=== PATIENT | female | born 1980 | race Caucasian/White ===

== ENCOUNTER 2023-02-24 11:00 | Outpatient (RCR) | payer BC, SELFPAY ==
--- NOTE | 2022-12-30 16:18 | PTOPEVAL1 ---
Assessment and note entered by Mian Green, PT Evaluation Information Assessment Status Evaluation Diagnosis low back pain with left sided sciatica Onset 6 months ago. Subjective Information Patient reports 6 months ago she started having low back pain with sciatica on the L side progressively going down further until now it is all the way to the toes. She had X-rays showing DDD. Pain is increased with working out and sleeping or being in prolonged position. She recently started tramadol and that helps with the pain. Clinical summary Ashanti is a 42 year old female coming into the clinic with a diagnosis of low back pain with radiating symptoms down the LLE. Patient has tightness in her piriformis, IT band, quads, and calfs along with weakness in her core. In addition patient showing leg length discrepancy of the LLE being longer while may or may not be secondary to SI joint dysfunction. Patient should benefit from skilled physical therapy to work on core strengthening along with stretching of her lower extremities to put her in better alignment. Modalities and manual therapy for pain control. These treatments will address the objective and functional deficits as defined above. The patient will be advanced safely and appropriately in order for the patient to progress towards his/her prior level of function. Additional exercises will be introduced and as well as a comprehensive home exercise program upon discharge, if needed, ?to ensure carryover of functional gains achieved in the clinic. This treatment plan has been reviewed and agreement upon by the patient.
--- NOTE | 2023-01-06 14:46 | PCPTNOTE ---
Patient called & cancelled scheduled appointment this date did not leave a reason.
--- NOTE | 2023-01-14 10:09 | PCPTNOTE ---
Pt cancelled her appt today stating she got back into town late last night and is too tired to attend today.
--- NOTE | 2023-01-18 10:03 | PCPTNOTE ---
Pt no showed todays visit, pt was called and WELDER/FITTER left message of her next appt. and to please call to cancel visits so we can get other people scheduled for that time.
--- NOTE | 2023-01-27 13:30 | PTOPREEVAL ---
Assessment and note entered by Mian Green, PT Evaluation Information Assessment Status Re-evaluation Diagnosis low back pain with left sided sciatica Onset 6 months ago. Subjective Information Patient reports feeling she is getting better and some days will have no pain at all. 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 She has also been trying to get back into the gym to see her personal consultant. Reported Pain Level Pain Score 3: Self Report Assessment PT Clinical Summary Ashanti is a 42 year old female coming into the clinic with a diagnosis of back pain with left side sciatica. She has attended 4 sessions having to cancel for 2 weeks while her family was getting over strep and a stomach flu. The patient has made progress with hip extension strength and reports no more radiating pain down the R LE with decrease felt on the L side also. 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 Piriformis muscle is not longer tight. I would like to continue to be working with the patient while she works on being more active to make sure we do not have any backsliding. If possible would also recommend an MRI so we could better focus or plan of care. Plan of Care Interventions Electrical Stimulation,Gait Training,Hot Pack/Cold Pack,Manual Therapy,Mechanical Traction,Neuro Re- education,Patient/Caregiver Education,Therapeutic Activities,Therapeutic Exercise,Ultrasound Other Interventions taping PT Services Indicated Yes Treatment Frequency and 1x/wk for 4 weeks Duration These treatments will address the objective and functional deficits as defined above. The patient will be advanced safely and appropriately in order for the patient to progress towards his/her prior level of function. Additional exercises will be introduced and as well as a comprehensive home exercise program upon discharge, if needed, ?to ensure carryover of functional gains achieved in the clinic. This treatment plan has been reviewed and agreement upon by the patient.
== END 2023-02-24 13:46 | disposition home or self-care (01) ==
LOC: ANHPT 11:00
DX: M54.42 Lumbago with sciatica, left side (principal)
CPT/HCPCS: 97110; 97140; 97161; 97530; 99199

== ENCOUNTER → 2023-07-07 10:18 | Outpatient (CLI) | payer BC, SELFPAY ==
--- NOTE | ~2023-07-07 | MR_ITS ---
EXAMINATION: MR thoracic spine wo con DATE: 07/07/2023 13:36 INDICATION: Low back pain. Left-sided sciatica. TECHNIQUE: Magnetic resonance imaging (MRI) of the thoracic spine was performed without intravenous c ontrast. COMPARISON: None FINDINGS: There is 7 degrees dextrocurvature of thoracic spine. There is mild chronic anterior wedgin g of T5, T7, T8, T9, T10, T11, and T12 vertebral bodies. There are Schmorl's nodes at many levels. Th ere is mildly decreased disc height from T3-T4 through T11-T12. At T5-T6, the disc is bulging with mi ld central canal stenosis. At T7-T8, there is a left central extrusion with mild central canal stenos is. At T11-T12, the disc is bulging with mild central canal stenosis. There is multilevel facet joint osteoarthritis, severe at many levels. There is multilevel mild neural foraminal stenosis bilaterall y. On the left, there is moderate neural foraminal stenosis at T7-T8 and T8-T9. There is syringohydro myelia from T4 to T9 with maximum diameter of 1 mm. IMPRESSION: 1. Mild thoracic spondylosis. 2. 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 Reviewed, dictated and finalized at location A.
--- NOTE | ~2023-07-07 | MR_ITS ---
EXAMINATION: MR lumbar spine wo con DATE: 07/07/2023 13:36 INDICATION: Low back pain. Left-sided sciatica. TECHNIQUE: Magnetic resonance imaging (MRI) of the lumbar spine was performed without intravenous con trast. Sequences included sagittal T2-weighted FSE, sagittal T2-weighted FS FSE, sagittal T1-weighted FSE, and axial T2-weighted FSE. COMPARISON: None FINDINGS: There is 8 degrees levocurvature of lumbar spine. S1 is a transitional segment. There are S chmorl's nodes at multiple levels. There is severely decreased disc height at L4-L5 and L5-S1 with en dplate remodeling. The distal spinal cord signal intensity is normal. The conus medullaris is at T12- L1. The following disc levels are specifically discussed: L1-L2: The disc does not extend beyond the endplate margin. There is no facet joint osteoarthritis. T here is no neural foraminal stenosis. There is no central canal stenosis. L2-L3: The disc is bulging. There is moderate bilateral facet joint osteoarthritis. There is mild tim ateral neural foraminal stenosis. There is no central canal stenosis. L3-L4: The disc is bulging. There is moderate bilateral facet joint osteoarthritis. There is mild tim ateral neural foraminal stenosis. There is no central canal stenosis. L4-L5: The disc is bulging. There is mild right facet joint osteoarthritis. There is moderate right a nd mild left neural foraminal stenosis. There is mild central canal stenosis. L5-S1: The disc is bulging with superimposed left central extrusion. There is mild right and severe l eft facet joint osteoarthritis. There is mild bilateral neural foraminal stenosis. There is mild cent ral canal stenosis. IMPRESSION: 1. Severe lower lumbar spondylosis. Reviewed, dictated and finalized at location A.
== END ==
PROVIDERS: PCP Physician Assistant
DX: M54.42 Lumbago with sciatica, left side (principal); M47.814 Spondylosis without myelopathy or radiculopathy, thoracic region; G95.0 Syringomyelia and syringobulbia; M47.816 Spondylosis without myelopathy or radiculopathy, lumbar region
CPT/HCPCS: 72146; 72148

== ENCOUNTER 2024-11-16 10:10 | Outpatient (CLI) | payer BC, SELFPAY ==
--- NOTE | ~2024-11-16 | XR_ITS ---
XR chest 2V Ordering provider: Ailyn Yeboah, [place] History: 44 years Female with . COUGH, UNSPECIFIED . Comparison: January 27, 2010 FINDINGS: MEDIASTINUM: The cardiac silhouette is not enlarged. LUNGS: No infiltrates, effusions or pneumothorax. OTHER: No free air under the diaphragm. IMPRESSION: No acute cardiopulmonary pathology. Reviewed, dictated and finalized at location A. TECHNICIAN
== END 2024-11-16 10:11 | disposition home or self-care (01) ==
LOC: GOSHIMG 10:10
PROVIDERS: PCP Physician Assistant; Visit Provider Physician Assistant
DX: R05.9 Cough, unspecified (principal)
CPT/HCPCS: 71046

== ENCOUNTER 2025-06-06 09:20 | Outpatient (CLI) | payer BC, SELFPAY ==
--- NOTE | ~2025-06-06 | XR_ITS ---
EXAM/PROCEDURE: XR abdomen/kub 1V - 06/06/2025 9:55 CDT HISTORY: 44 years old Female with right flank pain x 2 wks COMPARISON: None available. TECHNIQUE: AP view(s) of the abdomen. FINDINGS: The bowel gas pattern is normal. There is no evidence for obstruction. No free intraperitoneal air is identified on this supine radiograph. The visualized soft tissue shadows are unremarkable. No gross bony abnormalities are seen. Visualized portions of lung bases are clear. Cholecystectomy clips are seen. A battery and insulin pu mp is noted. No large radiopaque calculus seen. IMPRESSION: No acute process. Reviewed, dictated and finalized at location A. IMPRESSION: No acute process.
== END 2025-06-06 09:21 | disposition home or self-care (01) ==
PROVIDERS: PCP Physician Assistant; Visit Provider Physician Assistant
DX: R10.9 Unspecified abdominal pain (principal)
CPT/HCPCS: 74018

== ENCOUNTER 2025-06-11 13:52 | Outpatient (CLI) | payer BC, SELFPAY ==
--- NOTE | ~2025-06-11 | XR_ITS ---
Right Shoulder Technique: AP and scapular Y views were obtained. Clinical History: Pain Findings: No fracture or dislocation is seen. Osseous alignment is anatomic. The glenohumeral and acr omioclavicular joint spaces are preserved. Soft tissues are unremarkable. Impression: Unremarkable right shoulder radiographs. Reviewed, dictated and finalized at [facility]. Impression: Unremarkable right shoulder radiographs.
== END 2025-06-11 13:53 | disposition home or self-care (01) ==
PROVIDERS: PCP Physician Assistant; Visit Provider Physician Assistant
DX: M25.511 Pain in right shoulder (principal)
CPT/HCPCS: 73030

== ENCOUNTER 2025-07-29 01:15 | Day surgery (SDC) | payer BC, SELFPAY ==
--- OUTSIDE RECORDS SUMMARY | 2010-06-05 07:45 | XMS_ITS | Continuity of Care Document ---
Author Organization [facility] Address [address] [place] [address] Phone Care Team Providers Care Trimmer Helper Name Role Phone Barber OD, Zane Unavailable [...] Diagnoses Date Provider Providers Copied on Encounter [facility], [address] [place] [address] [address], [place], [place], [address], [place] tel:[phone] [facility] No Information 3-201 0 Barber OD Zane. [address] , [address], [place], [address], [place]. tel:[phone] Referring Provider: Brent Salazar, [address] [facility] [address], [place], [address]. tel:[phone] [facility], [address], [place], [place], [address], tel:[phone] [facility] No Information 7-200 9 Barber OD Zane. [address] , [address], [place], [address], [place]. tel:[phone] Referring Provider: Bernabe Green, [address] [facility] [address], [place], [address]. tel:[phone] [facility], [address], [place], [place], [address], tel:[phone] [facility] No Information Mar-2 0-200 8 Barber OD Zane. [address], [place], [address], [place]. tel:[phone] [facility], [address], [place], [place], [address], [place] tel:[phone] [facility] No Information Mar-0 6-200 8 Barber OD Zane. [address], [place], [place], [facility], [place]. tel:[phone] Referring Provider: Bernabe Green, [address] [facility] [address], [place], [address]. tel:[phone] [facility], [address] [facility] [address], [place], [place], [address], [place] tel:[phone] [facility] No Information Feb-2 7-200 7 Barber OD Zane. [address], [place], [address], [place]. tel:[phone] Referring Provider: Brent Salazar, [address] [facility] [address], [place], [address]. tel:[phone] Family History Family Member Type Diagnosis Age At Onset No Information Payers Payer name Insurance type Covered constitution party ID Authorarelya yolis(s) [facility] CI [id number] Social History Type Description Quantity Date Captured [...]
[2025-07-23 09:44] VITALS: BMI 36.6
--- NOTE | 2025-07-23 09:53 | PC.NURSE ---
Report to the Outpatient Waiting Room, entrance under the green pavilion located off [facility], at time _0600_ on date _[id number]_. Planned Procedure Time: _0730_.? Time changes happen often and if your time is changed the preop area will call you the afternoon before. - You and your visitor will be asked to self-screen and do not enter if you have any COVID symptoms. Please call surgeon if you need to reschedule. - A mask is optional within the hospital at this time. Patients may have clear liquids (water, carbonated beverages, clear teas, apple juice) until 3 hours prior to surgery with a maximum of 20 ounces. - No food from midnight until time of surgery and no smoking, or chewing tobacco (or any form of nicotine). No chewing gum, candy or mints. Take only the following medications with a SIP of water on the morning of surgery: __None___Continue insulin pump. DO NOT STOP ANY OF YOUR OTHER PRESCRIPTION MEDICATIONS PRIOR TO SURGERY EXCEPT THE FOLLOWING Hold all vitamins and supplements for 3 days per anesthesiologist. Medications to discontinue per physician Date to take last dose Please no make-up, nail arabic, hairspray, perfume, deodorant, or body powder the day of surgery.? No jewelry (including any body piercings) or valuables the day of surgery, leave them at home.? Please take a shower or bath the night before, or the morning of, surgery with an antibacterial soap.? Wear comfortable, loose fitting clothing.? - Jewelry must be removed prior to entering the operating room.? Rings and piercings that are not removed may be cut off. - The hospital will not accept responsibility for valuables.? - Please leave all valuables, including medications, at home the day of surgery. If you are going home after surgery, a licensed cement truck driver must drive you home.? - NO public transportation without another adult if you receive anesthesia. - We recommend that an adult stay with you for 24 hours following discharge. - We also recommend that you do not drive, make important decision, drink alcoholic beverages, or take any drugs that were not prescribed by your health care provider for at least 24 hours after your discharge time. Follow any additional instructions given to you from your surgeon. Telephone instructions given to __Ashanti___and asked if any additional questions and then verbalized understanding. Patient advised to call surgeon office or pre surgery nurse liaison [phone] if any additional questions.
--- NOTE | 2025-07-28 12:34 | P.HP_ITS ---
H&P: HPI History of Present Illness Date/Time: 07/28/25 12:34 Chief Complaint: AUB Narrative: Ashanti is a 44yo P1102, LMP 06/05/25 who presents as a [employer] ENG[employer] for [employer] in May; normal pap 05/2025. 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 She had been on OCPs (tried 3 diff kinds) and had severe migraines to help w/ ovulation pain and AUB. She has been having irregular periods for some time though; sometimes 35 to 18 days. She has not have endometrial sampling or a DIRECTOR OF SPA AND GUEST EXPERIENCE US. She does feel like the testosterone injections 0.5mg weekly has helped her libido, but has made the bleeding iridic. She is taking progesterone 100mg qhs. She denies any pelvic pain, but has a h/o x2. She denies any vaginal issues. She denies any breast issues, goes to [facility]. She is sexually active w/o issue, has vasectomy. She reports a h/o normal pap smears. She has DM and is on insulin and mounjaro, A1c 5.7. See's Ailyn and endo; had normal blood work recently. She also had normal hormone testing 03/13/25 before starting hormones (no PCOS, just DM). She was having hot flashes, night sweats prior to the hormones as well. DIRECTOR OF SPA AND GUEST EXPERIENCE US showed an irregular uterine texture (likely adenomyosis). Review of Systems Constitutional: Constitutional: Denies chills, Denies fever(s) and Denies headache(s) Eyes: Eyes: Denies change in vision ENT: Denies dizziness and Denies headache(s) Cardiovascular: Cardiovascular: Denies chest pain and Denies dyspnea Respiratory: Respiratory: Denies cough and Denies dyspnea Gastrointestinal: Gastrointestinal: Denies abdominal pain and Denies change in stool character Genitourinary: Genitourinary: Reports abnormal menses, Reports abnormal vaginal bleeding, Reports menorrhagia, Denies pelvic pain, Denies vaginal di scharge, Denies vaginal odor and Denies vaginal pruritus Neurologic: Denies dizziness and Denies headache(s) Psychiatric: Psychiatric: Denies anxiety and Denies depression [facility] Past Medical History Medical History (Updated 06/11/25 @ 11:47 by Swathi Hernández MD) GERD (gastroesophageal reflux disease) Gallbladder disorder Diabetes Allergies Surgical History Surgical History (Updated 06/11/25 @ 09:57 by Renan Batista MA) H/O wisdom tooth extraction History of cholecystectomy History of carpal tunnel surgery Delivery by section Family History Family History (Updated 06/11/25 @ 09:57 by Renan Batista MA) Grandparent Family history of lung cancer Family history of malignant neoplasm of breast Family history of heart disease in male family member before age 55 Father Brain tumor Other Family history of cardiovascular disease Social History Social History (Updated 06/11/25 @ 09:57 by Renan Batista MA) Smoking status: Never smoker Second hand tobacco smoke exposure: No Alcohol intake: current Drinks per week: 4 Substance use: never Substance use type: does not use Do You Feel Safe in your Home?: Yes Lack of Transportation: No Lack of Food: Never True Current Housing: I Have Housing Concerned About Future Housing: No Difficulty Paying Gas/Electric Bills: No Difficulty Paying for Meds: No Currently Unemployed: No Education: Bachelor's Degree Difficulty w/ Childcare or Family Care: No Living arrangements: with family Occupation/Education: other Spiritual care concerns: No Meds Home Medications and Allergies Home Medications ?Medication ?Instructions ?Recorded ?Confirmed ?Type insulin aspart U-100 100 unit/mL 1.25 unit subcut Q1H 06/11/25 07/23/25 History subcutaneous solution (Novolog U-100 Insulin aspart) insulin pump cart,auto,BT,G6/7 #5 ea 06/11/25 07/23/25 History (Omnipod 5 G6-G7 Pods (Gen 5) subcutaneous cartridge) progesterone micronized 100 mg 200 mg (2 x 100 mg) PO QHS 60 days 06/11/25 07/23/25 Rx capsule #120 caps spironolactone 50 mg tablet 50 mg PO DAILY 06/11/25 History tirzepatide 15 mg/0.5 mL 15 mg subcut WEEKLY 06/11/25 07/23/25 History subcutaneous pen injector (Mounjaro) Allergies Allergy/AdvReac Type Severity Reaction Status Date / Time codeine Allergy Intermediate Nausea and Verified 07/23/25 09:40 Vomiting Exam Const: General: cooperative, comfortable, no acute distress and obese Orientation/consciousness: patient oriented x3 Resp: Effort & Inspection: normal respiratory effort Cardio: Rate: regular rate GI: Inspection: normal to inspection GI Palp: No abdominal tenderness and Yes Soft to palpation : Other: deferred to OR Skin: General skin exam: normal color Neuro: General: patient oriented x3 Extrem: General: normal to inspection Psych: Appearance: grossly normal Affect: normal affect Attitude: cooperative Assessment and Plan Assessment and plan (1) Abnormal uterine bleeding (AUB): Code(s): N93.9 - Abnormal uterine and vaginal bleeding, unspecified Status: Acute (2) Hormone replacement therapy: Code(s): Z79.890 - Hormone replacement therapy Status: Acute Plan - micronized progesterone increased to 200mg qhs - would avoid estrogen as it has caused migraines in the past - recommend stopping testosterone IM until AUB w/u and sampling has been completed. - Proceed with Hysteroscopy/D&C for endometrial sampling (discussed risk/b enefits of EMB vs D&C in detail)
--- OUTSIDE RECORDS SUMMARY | 2025-07-29 01:18 | XMS_ITS | Encounter Summary ---
Author Organization [facility] Address [address] [place] [address] Care Team Providers Care Reference Assistant Name Role Phone Unavailable Primary Care Provider Unavailabl e Encounter Details Date Type Department Care Team (Late st Contact Info) Description 09/06/2024 Lab Requisition [facility] - DermPath Lab [address] [place] [address] Nichole Li MD [address] [facility] [address] [place] [address] Social History Tobacco Use Types Packs/Day Years Used Date Smoking Tobacco: Never Assessed Comments Unknown Sex and Gender Information Value Date Recorded Sex Assigned at Not on file 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 Gender Identity Not on file Sexual Orientation Not on file documented as of this encounter Plan of Treatment Not on file documented as of this encounter Procedures Procedure Name Priority Date/Time Associated Diagnosis Comments DERMATOPATHOLOGY Routine 09/06/2024 1:46 PM CDT documented in this encounter Results * DERMATOPATHOLOGY (09/06/2024 1:46 PM CDT) Case Report Dermatopathology Report Case: [id number] Authorizing Provider: Nichole Li MD Collected: 09/06/2024 01:46 PM Ordering Location: [facility] - Received: 09/07/2024 02:17 PM DermPath Lab Pathologist: Ana Davidson MD Specimen: Skin, right abdomen 4:05 PM CDT DERMATOPATHOLOGY LABORATORY Final Diagnosis Specimen A. 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 4:05 PM CDT DERMATOPATHOLOGY LABORATORY Gross Description Specimen A: Received is one formalin filled container labeled with the patient's name and designated right abdomen. The specimen consists of a punch biopsy measuring 4x4x6 mm. Jar 0. 4:05 PM CDT DERMATOPATHOLOGY LABORATORY Microscopic Description Specimen A. SKIN, right abdomen: The epidermis shows focal parakeratosis and spongiosis. There is a superficial and deep perivascular and interstitial infiltrate of lymphocytes with eosinophils. Vasculitis is not seen. Neutrophils are not appreciated. Grocott's methenamine silver (GMS) stain fails to highlight fungal elements in the available sections. COMMENT: The histologic differential diagnosis includes an arthropod bite reaction, and a hypersensitivity reaction, such as to drug or contact. 4:05 PM CDT DERMATOPATHOLOGY LABORATORY Disclaimer An external and internal positive and negative controls are appropriate for the histochemical, immunohistochemical and immunofluorescence stain(s) in this case (if any), except where stated explicitly. The performance characteristics of the stain(s) cited in this report were developed and its performance characteristic determined by the Dermatopathology Laboratory at [facility], directed by Dr. Cain Prieto. These tests need not be, and therefore are not, approved by the [place] Food and Drug Administration. The tests are used for clinical purposes. Billing Codes Specimen Charges Stain Charges 92542 1 17404 1 4:05 PM CDT DERMATOPATHOLOGY LABORATORY Embedded Images 4:05 PM CDT DERMATOPATHOLOGY LABORATORY Pathology/Cytolo gy TISSUE SPECIMEN FROM SKIN / Unknown 09/06/2024 1:46 PM CDT 09/07/2024 2:17 PM CDT Nichole Li MD LAB - PATHOLOGY/CYTOLOGY OR DERABLES Final Result DERMATOPATHOLOGY LABORATORY [facility] - Department of Dermatology [address], [address] [phone] documented in this encounter Visit Diagnoses Not on filedocumented in this encounter
--- OUTSIDE RECORDS SUMMARY | 2025-07-29 01:18 | XMS_ITS | Clinical Summary ---
Author Organization [facility] Address [address] [place] [address] Phone Care Team Providers Care Continuous Churn Buttermaker Name Role Phone Ailyn Yeboah Primary Care Provider [phone] Allergies Active Allergy Reactions Criticality Noted Date Comments Codeine Nausea and Vomiting Low 03/02/2017 Medications insulin aspart protamine-aspar t (NovoLOG MIX 70-30) 100 unit/mL (70-30) pen syringe Inject 49 Units by subcutaneous injection. Active clotrimazole-be tamethasone (LOTRISONE) 1-0.05 % Lotion Apply to affected area. Active liraglutide (VICTOZA 2-STEFFI SUBCUT) Inject by subcutaneous injection. Active montelukast (SINGULAIR) 10 mg tablet Take 10 mg by mouth daily at bedtime. Active sod picosulf-mag ox-citric ac (Clenpiq) 10 mg-3.5 gram -12 gram/160 mL Solution Follow directions provided by physician's office for colonoscopy preparation. 1 Each 2 Active traMADoL 50 mg tablet Take by mouth every 6 hours as needed for Pain. Active spironolactone 100 mg tablet Take 100 mg by mouth daily. Active pantoprazole (PROTONIX) 40 mg Tablet, Delayed Release (E.C.) Take 1 Tablet (40 mg) by mouth daily. 90 Tablet 2 4 Active Active Problems Problem Noted Date Diagnosed Date Vitamin D deficiency 01/07/2023 Overview (01/07/2023): 12/2022: Your vitamin D was a little low. Take a 2,000 iu supplement daily. If you were already on a supplement when you had your blood work checked, then you may need to double the dose. Your B12 level is at the lower limit of normal. Take a daily Vitamin B12 supplement (250-500 mcg). Family history of brain cancer 01/05/2023 Overview (01/05/2023): Father in his 30's. Genetic screening? 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 Acid reflux 06/04/2018 Chronic diarrhea 03/02/2017 Encounters Date Type Department Care Team Description 06/18/2025 External Device Data [facility] ABSTRACTION Provider, Abstract 05/29/2025 External Device Data [facility] ABSTRACTION Provider, Abstract 05/28/2025 External Device Data [facility] ABSTRACTION Provider, Abstract 04/30/2025 External Device Data [facility] ABSTRACTION Provider, Abstract from Last 3 Months Family History Medical History Relation Name Comments Cancer Father No Known Problems Mother No Known Problems Other Colon Cancer Neg Hx Relation Name Status Comments Father Mother Other Social History Tobacco Use Types Packs/Day Years Used Date Smoking Tobacco: Never Passive Smoke Exposure: Never Tobacco Cessation:Counseling Given: Not Answered Alcohol Use Standard Drinks/Week Comments Yes 0 (1 standard drink = 0.6 oz pur e alcohol) weekends- social Comments No Sex and Gender Information Value Date Recorded Sex Assigned at Not on file Legal Sex Female 5:11 PM 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 Gender Identity Not on file Sexual Orientation Not on file Last Filed Vital Signs Vital Sign Reading Time Taken Comments Blood Pressure 111/66 02/27/2024 10:13 AM CDT Pulse 88 02/27/2024 10:13 AM CDT Temperature 36.8 C (98.3 F) 01/05/2023 10:26 AM 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 Respiratory Rate 16 01/05/2023 10:47 AM 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 Oxygen Saturation 97% 01/05/2023 10:47 AM 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 Inhaled Oxygen Concentration - - Weight 108.9 kg (240 lb) 02/27/2024 10:13 AM CDT Height 157.5 cm (5' 2) 02/27/2024 10:13 AM CDT Body Mass Index 43.9 02/27/2024 10:13 AM CDT Plan of Treatment Health Maintenance Due Date Last Done Comments DIABETES ANNUAL RETINAL EXAM 2000 DIABETES MICROALBUMIN ANNUAL SCREEN 2000 LDL CHOLESTEROL ANNUAL 2000 DTAP/TDAP/TD VACCINES (1 - Tdap) 2001 HEPATITIS B VACCINES (1 of 3 - 19+ 3-dose series) 2001 HPV/Cotest (21-29) 2003 HPV VACCINES (1 - 3-dose SCDM series) 2009 CERVICAL CANCER SCREENING 2012 HPV/Cotest (30-65) 2012 PAP SMEAR 2012 DIABETES ANNUAL FOOT EXAM 04/24/2020 04/24/2019 DIABETES HBA1C Q 6 MONTHS 02/14/20242022, 10/12/2022, 04/24/2019 BREAST CANCER SCREENING 03/15/2024 03/15/20 23, 03/15/2023, 01/05/2022 INFLUENZA VACCINE (#1) 2025 09/12/2019, 2017 COLORECTAL SCREENING 01/05/2028 01/05/2023, 01/05/2023, 01/04/2023 Procedures Procedure Name Priority Date/Time Associated Diagnosis Comments COLONOSCOPY REPORT 01/05/2023 10 :31 AM 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 from Last 3 Months or Most Recently Relevant to Health Maintenance Results * COLONOSCOPY REPORT (01/05/2023 10:31 AM 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) Narrative Procedure Note Golden Cabrera MD - 01/05/2023 10:30 AM CST [facility] Endoscopy Patient Name: Ashanti Goetz Procedure Date: 01/05/2023 Date of : 1980 Attending MD: Golden Cabrera MD, Procedure: Colonoscopy Indications: Family history of brain cancer father at a young age. Colorrheic diarrhea. Providers: Golden Cabrera MD Referring MD: iAlyn Yeboah Medicines: Propofol per Anesthesia Complications: No immediate complications. Procedure: Informed consent was obtained for the procedure, including moderate sedation after risks were discussed. Based on the pre-procedure assessment, including review of the patient's medical history, medications, allergies, and review of systems, the patient was deemed to be an appropriate candidate for sedation. A timeout was performed. Continuous ECG monitoring, pulse oximetry, blood pressure monitoring, and direct observation were performed. The Colonoscope was introduced through the anus and advanced to the terminal ileum, with identification of the appendiceal orifice and IC valve. The colonoscopy was performed without difficulty. The patient tolerated the procedure well. The quality of the bowel preparation was good. At completion of the exam, the scope was advanced to the cecum and all residual air was removed. Estimated Blood Loss: Estimated blood loss: none. Findings: Internal hemorrhoids were found during retroflexion. The hemorrhoids were small. No other significant abnormalities were identified in a careful examination of the remainder of the colon. Impression: - Internal hemorrhoids. - No specimens collected. Recommendation: - Repeat colonoscopy in 5-10 years for surveillance. Golden Cabrera MD 01/05/2023 10:30:33 AM This report has been signed electronically. Number of Addenda: [address]; [place] [address] Golden Cabrera MD GI PROCEDURE ORDERABLES Final Re sult from Last 3 Months or Most Recently Relevant to Health Maintenance Insurance [facility] BLUE ACCESS/TRUE BLUE PPO Advance Directives For more information, please contact: [phone] * Full Code (Latest Code Status on File) Date Activated Date Inactivated Comments 01/05/2023 9:02 AM 01/05/2023 1:12 PM Care Teams Continuous Churn Buttermaker Relationship Specialty Start Date End Date Ailyn Yeboah PA PCP - General Physician Merchandising Professor 11/29/16
--- OUTSIDE RECORDS SUMMARY | 2025-07-29 01:18 | XMS_ITS | Clinical Summary ---
Author Organization [facility] Address [address] [place] [address] Care Team Providers Care Bushel Worker Name Role Phone Unavailable Primary Care Provider Unavailabl e Source Comments [facility],non-owned Affiliates and Associated Physician Practices is amultiple site organization consisting of ambulatory clinics and hospital sitesin [place], [place], [place] and [place]. This disclosure is being madepursuant to the Care Everywhere program and may not contain all information available regarding this patient. 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 Gender Identity Not on file Sexual Orientation Not on file Plan of Treatment Health Maintenance Due Date Last Done Comments LIPID TESTING 1980 MAMMOGRAM 1980 HIV SCREENING 1997 HEPATITIS C SCREENING 06/28/2000 DTAP/TDAP/TD VACCINES (1 - Tdap) 2001 HEPATITIS B VACCINE (1 of 3 - 19+ 3-dose series) 2001 PAP SMEAR 2003 HPV VACCINE (1 - 3-dose SCDM series) 2009 DEPRESSION SCREENING 11/14/2024 COVID-19 VACCINE (1 - 2023-2 5 season) 2025 INFLUENZA VACCINE (#1) 2025 ZOSTER VACCINE (1 of 2) 2032 HIB VACCINE Aged Out No longer eligi ble based on patient's age to complete this topic MENINGOCOCCAL (Group B) VACC INE SHARED DECISION-MAKING Aged Out No longer eligibl e based on patient's age to complete this topic MENINGOCOCCAL GROUPS A/C/Y/W VACCINE Aged Out No longer eligible b ased on patient's age to complete this topic PNEUMOCOCCAL VACCINE Aged Out No long er eligible based on patient's age to complete this [place] [address] [facility]
--- OUTSIDE RECORDS SUMMARY | 2025-07-29 01:18 | XMS_ITS | Clinical Summary ---
Author Organization [facility] Address [address] [place] [address] Care Team Providers Care Special Warfare Combatant Crewman Name Role Phone Ailyn Yeboah Primary Care Pr ovider Allergies Active Allergy Reactions Criticality Noted Date Comments Codeine Nausea only,Vomiting Reaction: NAUSEA, VOMITING, Medications clotrimazole-betam ethasone (LOTRISONE) lotion Apply topically 2 (two) times a day. Active montelukast (SINGULAIR) 10 mg tablet Take 1 tablet (10 mg total) by mouth nightly Active blood-glucose meter,continuous (DEXCOM G6 HOT DOG VENDER) mis One Manager Of Tax 1 each 09/19/20 18 Active blood-glucose transmitter (DEXCOM G6 TRANSMITTER) device 1 transmitter every 90 days. 1 Device 3 09/19/20 18 Active subcutaneous insulin pump mis Ac tive azelastine (ASTELIN) 137 mcg (0.1 %) nasal spray Active EPINEPHrine 0.3 mg/0.3 mL auto-injection syringe epinephrine 0.3 mg/0.3 mL injection, auto-injector Active pen needle, diabetic (NovoFine Plus) 32 gauge x 1/6 needle Use to inject Victoza daily, and insulin 4 times a day with pump failure 100 each 3 05/14/20 22 Active traMADoL (ULTRAM) 50 mg tablet Take 1 tablet (50 mg total) by mouth every 6 (six) hours as needed 02/21/20 24 Active tretinoin (RETIN-A) 0.05 % cream APPLY EXTERNALLY TO FACE EVERY NIGHT AT BEDTIME 03/22/20 24 Active glucagon 1 mg/0.2 mL auto-injector 1 mg PRN hypogclyemia 0.2 mL 1 06/05/20 24 Active fluticasone propionate (FLONASE) 50 mcg/actuation nasal spray SHAKE LIQUID AND USE 2 SPRAYS IN EACH NOSTRIL DAILY 48 g 3 06/06/20 24 Active insulin pump cart,automated,BT (Omnipod 5 G6 Pods, Gen 5,) cartridgeIndicatio ns:Type 1 diabetes mellitus with hyperglycemia (HCC) APPLY/CHANGE ONCE EVERY 72 HOURS USE WITH OMNIPOD INSULIN PUMP 30 each 3 08/30/20 24 Active hydrOXYzine (ATARAX) 25 mg tablet Take by mouth nightly 12/10/19 25 Active norethindrone-e.es tradioL-iron 1 mg-20 mcg(24) /75 mg (4) tablet,chewable Take 1 tablet by mouth daily 10/08/20 24 Active NovoLOG 100 unit/mL vial for injectionIndicatio ns:Type 1 diabetes mellitus without complication (HCC) USE DIRECTED WITH INSULIN PUMP. UP TO 80 UNITS PER DAY. 80 mL 3 02/02/20 25 Active insulin syringe-needle U-100 1 mL 31 gauge x 5/16 syringe U WITH INSULIN INJECTIONS 3 TO 5 XD. Active ondansetron ODT (ZOFRAN-ODT) 4 mg disintegrating tablet DISSOLVE 1 TABLET ON THE TONGUE EVERY 4 TO 6 HOURS NEEDED 12/13/19 25 Active blood sugar diagnostic (ONETOUCH ULTRA BLUE TEST STRIP MISC) TEST 7 TO 8 TIMES DAILY In Vitro 10/12/20 14 Active tirzepatide (Mounjaro) 15 mg/0.5 mL pen injector injection Inject 0.5 mL (15 mg total) under the skin once a week 6 mL 1 04/25/20 25 Active blood-glucose sensor (Dexcom G7 Sensor) deviceIndications: Type 2 diabetes mellitus without complication, without long-term current use of insulin (HCC) Dexcom G7 sensor use for 10 days to monitor blood sugar. 9 each 3 05/16/20 25 Active Active Problems Problem Noted Date Diagnosed Date Allergic rhinitis due to animal hair and dander 07/29/2023 Allergic rhinitis due to pollen 07/29/2023 Chronic allergic conjunctivitis 07/29/2023 Dermatitis due to drug taken internally 07/29/20 Paresthesia 07/29/2023 Lumbago with sciatica 10/11/2022 Otalgia of left ear 05/19/2022 Gastroesophageal reflux disease without esophagi tis 03/11/2022 Family history of breast cancer 12/09/2021 Encounter for screening mammogram for breast can cer 12/09/2021 Insulin pump titration 12/08/2021 Vitamin D deficiency 07/10/2019 Vitamin B 12 deficiency 07/10/2019 Class 3 severe obesity due t o excess calories without serious comorbidity in adult 07/10/2019 Type 1 diabetes mellitus without complication Overview (05/04/2019): August 07, 2018 Glucose 229 C-peptide less than 0.1 Mike 65 antibody 45.6, normal 0.0-5.0 Pro insulin 2.2/ % proinsulin 1% Insulin less than 0.2 Assessment & Plan (01/29/2025 1:06 PM CDT): A1C 5.5% today We adjusted Omnipod: Lowered 0000 basal to 1.3 from 1.45 Tightened ICR to 1:6 across the board (this was prior setting) Will reach out in 1-2 weeks for review Assessment & Plan (10/04/2024 6:19 PM PHOTO OFFSET PRINTER): A1c is at goal. I recommended that she bolus 15 minutes before she eats. Recommend yearly eye exams. She will send me labs from her last PCP appointment. Assessment & Plan (06/05/2024 4:36 PM CDT): Her A1c is at goal. However, she is having some prolonged glucose spikes after her meals and wonders if she would benefit from administering more prolonged boluses, especially since her glucose absorption tends to be slower after having started the Mounjaro. This is reasonable. I have activated the extended bolusing on her Omnipod. She will administer a bolus with each meal over 30 minutes, especially if the meal is rich in fat and/or protein in addition to carbohydrates. The bolus can be extended to 60 minutes as needed. We will keep her carb ratios and basal rates the same. She prefers manual mode. Urine microalbumin due today. Continue routine eye exams. She sees a freight rate analyst and reports no neuropathy. I refilled her basal insulin pen to take every 24 hours in case of pump failure. I also refilled her glucagon. I will have her try Flonase for the contact dermatitis presumably from the Omnipod adhesive. We will discuss starting a statin at the next visit for ASCVD prevention. Assessment & Plan (01/17/2019 5:29 PM PHOTO OFFSET PRINTER): Diabetes control is improving with less variability in her blood sugars We did make some further pump adjustments after she met with the educator today- see note. Basal rates changed as follows midnight 1.5 4:30 a.m. 1.65 9:00 a.m. 1.75 1:00 p.m. 1.5 For bolus settings added a 9:00 p.m.-midnight correction target of 110-120 so she can safely correct at hs if needed She may need a stronger carb ratio but needs to work on carb counting 1st to be assure currently set at 10 but could be as much as and 8 She is quite interested in type 1 diabetes studies and will refer for screening She can continue Victoza She is also back on NovoLog as she noticed that while using Fiasp that after about 36 hours she had higher blood sugars in a bit more erratic nature to the readings. We have asked her to stop using it in the pump as it was a trial period of off- label use of Fiasp. And may not remains stable for the full 3 days Resolved Problems Problem Noted Date Diagnosed Date Resolved Date Rash 10/04/2024 01/29/2025 Assessment & Plan (10/04/2024 1:45 PM PHOTO OFFSET PRINTER): Unclear etiology. Could be urticaria or contact dermatitis. She will see an urticaria specialist and yoker machine operator. Obesity (BMI 30-39.9) 06/05/20242024 Assessment & Plan (10/04/2024 6:19 PM PHOTO OFFSET PRINTER): Continue Mounjaro. This is unlikely to be the cause of her rash. Allergic rhinitis 07/29/2023 01/29/2025 Diabetes mellitus 01/27/2023 01/29/2025 Acute urinary tract infection 01/05/2023 01/29/2025 Disorder of soft tissue 10/11/202201/12 Pain in limb 10/11/2022 01/29/2025 Skin sensation disturbance 10/11/2022 0 01/29/2025 Cough 09/20/2022 01/29/2025 Upper respiratory infection 09/20/2022 01/29/2025 Multiple joint pain 03/11/2022 01/30/20 25 BMI 40.0-44.9, adult 08/13/2021 025 Type 1 diabetes mellitus with hyperglycemia 04/22/2019 01/29/2025 Overview (05/04/2019): August 07, 2018 Glucose 229 C-peptide less than 0.1 Mike 65 antibody 45.6, normal 0.0-5.0 Pro insulin 2.2/ % proinsulin 1% Insulin less than 0.2 Type 2 diabetes mellitus treated with insulin 03/30/20 14 09/19/2018 Overview (02/19/2017): Insulin-requiring or dependent type II diabetes me Encounters Date Type Department Care Team Description 05/15/2025 Orders Only [facility] [address] [place] [phone] Nichole Garg RN from Last 3 Months Immunizations Immunization Administration Dates Next Due Influenza, Quadrivalent, Spl it, Preservative Free, Intramuscular 09/12/2019,09/04/2018 Surgical History Surgery Date Site/Laterality Comments CHOLECYSTECTOMY Cholecystectomy OTHER SURGICAL HISTORY Diabetes mellitus: insulin pump OTHER SURGICAL HISTORY 11/14/2010 - 11/13/2011 : SECTION Medical History Medical History Date Comments Hx Other Medical 2008 ; Outc ome: 38 1/2 week 7 lb(s) 14 oz female Hx Other Medical 2010 ; Outc ome: 36 1/2 week 3450 gms Male Depression resolved GERD (gastroesophageal reflux disease) Vitamin D deficiency Diabetes mellitus type I (HCC) 07/15/2000 Family History Medical History Relation Name Comments Diabetes type I Brother Jacob Brain cancer Father Breast cancer Maternal Grandmother Diabetes type I Niece Breast cancer Paternal Grandmother Diabetes type I Sister Christine Diabetes -Ty pe 1; Relation Name Status Comments Brother Jacob Alive Father Maternal Grandfather Maternal Grandmother Mother Alive Niece Alive Paternal Grandfather Paternal Grandmother Sister Christine Alive Social History Tobacco Use Types Packs/Day Years Used Date Smoking Tobacco: Never Smokeless Tobacco: Never Tobacco Cessation:Counseling Given: Not Answered Alcohol Use Standard Drinks/Week Comments Yes 0 (1 standard drink = 0.6 oz pur e alcohol) AUDIT-C Answer Date Recorded Q1: How often do you have a drink containing alc ohol? 2-3 times a week 08/13/2021 Average Number of Drinks Not on file 021 Frequency of Binge Drinking Not on file 07/17 Comments No Sex and Gender Information Value Date Recorded Sex Assigned at Not on file Legal Sex Female 6:45 AM PHOTO OFFSET PRINTER Gender Identity Female 02/25/2020 2:52 PM CDT Sexual Orientation Straight 02/25/2020 2: 52 PM CDT Obstetrics History Last Filed Vital Signs Vital Sign Reading Time Taken Comments Blood Pressure 143/88 01/29/2025 12:47 PM CDT Pulse 97 01/29/2025 12:47 PM CDT Temperature 36.6 C (97.9 F) 12/17/2024 9:00 AM PHOTO OFFSET PRINTER Respiratory Rate 18 12/17/2024 9:00 AM PHOTO OFFSET PRINTER Oxygen Saturation 100% 12/17/2024 9:00 AM PHOTO OFFSET PRINTER Inhaled Oxygen Concentration - - Weight 89.8 kg (198 lb) 04/15/2025 10:21 AM CDT Height 157.5 cm (5' 2) 04/15/2025 10:21 AM CDT Body Mass Index 36.21 04/15/2025 10:21 AM CDT Plan of Treatment Health Maintenance Due Date Last Done Comments Cervical Cancer Screening 1982 Depression Screening 1982 Hepatitis C Screening 1982 Dilated Eye Exam 1992 DTaP/Tdap/Td Vaccine (1 - Tdap) 1993 Varicella Vaccines (1 of 2 - 13+ 2-dose series) 1995 Hepatitis B Screening 2000 Regular Well Visit/Exam 18-64 2000 Pneumococcal vaccine <65 (1 of 2 - PCV) 2001 HPV Vaccines (1 - 3-dose SCD M series) 2009 Foot Exam 04/24/2020 04/24/2019, 01/17/2019 eGFR 01/04/2024 01/04/2023 Albumin Creatinine Ratio, Urine 06/05/2025 4, 01/04/2023 Influenza Vaccine (#1) 2025 9, 09/04/2018, 09/27/2013 Hemoglobin A1C 08/01/2025 01/29/2025, 09/15, 03/26/2024, Additional history exists Lipid Panel 03/13/2026 03/13/2025, 09/15, 06/05/2024, Additional history exists TSH Level 03/13/2026 03/13/2025, 01/04/2023 Breast Cancer Screening-Mammogram 04/15/2026 04/15/2025, 03/26/2024, 03/15/2023, Additional history exists Procedures Procedure Name Priority Date/Time Associated Diagnosis Comments SCREENING MAMMOGRAM BILATERAL W ANDRE Schedule Routine, Read Routine (OP Routine) 04/15/2025 10:30 AM CDT Screening mammogram, encounter for POCT HEMOGLOBIN A1C Routine 01/29/2025 1:03 PM CDT Type 1 diabetes mellitus without complication (HCC) POCT LIPID PANEL Routine 10/04/2024 2:29 PM PHOTO OFFSET PRINTER Type 1 diabetes mellitus without complication (HCC) ALBUMIN CREATININE RATIO, URINE Routine 06/05/2024 3:10 PM CDT Type 1 diabetes mellitus without complication (HCC) BASIC METABOLIC PANEL Routine 01/04/2023 12:30 PM PHOTO OFFSET PRINTER Type 1 diabetes mellitus with hyperglycemia (HCC) THYROID FUNCTION CASCADE Routine 01/04/2023 12:30 PM PHOTO OFFSET PRINTER Type 1 diabetes mellitus with hyperglycemia (HCC) from Last 3 Months or Most Recently Relevant to Health Maintenance Results * Screening Mammogram Bilateral W Andre (04/15/2025 10:30 AM CDT) Anatomical Region Laterality Modality Breast Bilateral Mammography Impressions 04/16/2025 2:18 PM CDT Bilateral No evidence of malignancy in either breast. OVERALL BI-RADS FINAL ASSESSMENT: 1 - Negative RECOMMENDATION: Recommend bilateral annual screening mammography. Narrative 04/16/2025 2:18 PM CDT EXAMINATION: Screening Mammogram Bilateral W Andre: 04/15/2025 COMPARISON: Relevant prior studies available at the time of interpretation were reviewed. TECHNIQUE: Mammography was performed with 2D and digital breast tomosynthesis (DBT) images. CAD was utilized. BREAST PARENCHYMAL COMPOSITION: There are scattered areas of fibroglandular density. FINDINGS: Bilateral There is no suspicious mass, calcification, or architectural distortion in either breast. Self Screening Mammogram IMG MAMMO PROCEDURES Fi nal Result * POCT hemoglobin A1c (01/29/2025 1:03 PM CDT) Hemoglobin A1C, POC 5.5 4.0 - 5.6 % Blood 01/29/2025 1:03 PM CDT Valarie Matias NP POINT OF CARE TEST ORDER NO Final Result * POCT lipid panel (10/04/2024 2:29 PM PHOTO OFFSET PRINTER) Cholesterol, POC 171 mg/dL HDL, POC 75 mg/dL Triglycerides, POC 146 mg/dL LDL Cholesterol POC 67 mg/dL Chol/HDL Ratio, POC 2.3 Non-HDL Cholesterol, POC 67 mg/dL Cholesterol Total, POC 171 mg/dL Capillary blood 10/04/2024 2 :29 PM PHOTO OFFSET PRINTER Yonatan Ramírez MD POINT OF CARE TEST ORDE RABROSA Final Result * Albumin Creatinine Ratio, Urine (06/05/2024 3:10 PM CDT) Creatinine ur 226.6 Not Estab. mg/dL [facility] - 01 Microalbumin, ur 9.2 Not Estab. ug/mL [facility] - 01 Microalbumin/cre at ratio 4 0 - 29 mg/g creat [facility] - 01 Comment: Normal: 0 - 29 Moderately increased: 30 - 300 Severely increased: >300 Urine 06/05/2024 3:10 PM CDT 06/05/2024 Narrative [facility] - 06/06/2024 7:11 AM CDT Performed at: [address] [place] [id number] Drill Sharpener: Dipesh Todd PhD, Phone: [phone] us Yonatan Ramírez MD LAB URINE ORDERABLES Fi nal Result Performing Organization Address [facility] Co de Phone Number [facility] * TSH reflex to free T4 (01/04/2023 12:30 PM PHOTO OFFSET PRINTER) TSH 1.320 0.450 - 4.500 uIU/mL [facility] - 01 Comment: No apparent thyroid disorder. Additional testing not indicated. In rare instances, Secondary Hypothyroidism as well as Subclinical Hypothyroidism have been reported in some patients with normal TSH values. Blood 01/04/2023 12:3 0 PM PHOTO OFFSET PRINTER 01/04/2023 Narrative [facility] - 01/05/2023 9:11 AM PHOTO OFFSET PRINTER Performed at: [address] [place] [id number] Drill Sharpener: Dipesh Todd PhD, Phone: [phone] us Gabriel Escalante MD LAB BLOOD ORDERABLES Final R esult Performing Organization Address [facility]/ZIP Co de Phone Number [facility] * (ABNORMAL) Basic metabolic panel (01/04/2023 12:30 PM PHOTO OFFSET PRINTER) Glucose 61(L) 70 - 99 mg/dL [facility] - 01 BUN 11 6 - 24 mg/dL [facility] - 01 Creatinine, Serum 0.83 0.57 - 1.00 mg/dL [facility] - 01 eGFR 91 >59 mL/min/1.73 [facility] - 01 BUN/creat ratio 13 9 - 23 [facility] - 01 Sodium 142 134 - 144 mmol/L [facility] - 01 Potassium, sr 4.2 3.5 - 5.2 mmol/L [facility] - 01 Chloride 104 96 - 106 mmol/L [facility] - 01 CO2 23 20 - 29 mmol/L [facility] - 01 Calcium 9.2 8.7 - 10.2 mg/dL [facility] - 01 Blood 01/04/2023 12:3 0 PM PHOTO OFFSET PRINTER 01/04/2023 Narrative [facility] - 01/05/2023 7:10 AM PHOTO OFFSET PRINTER Performed at: - [facility] [address] [id number] Drill Sharpener: Dipesh Todd PhD, Phone: [phone] us Gabriel Escalante MD LAB BLOOD ORDERABLES Final R esult [facility] - 01 from Last 3 Months or Most Recently Relevant to Health Maintenance [place] Care Teams Special Warfare Combatant Crewman Relationship Specialty Start Date End Date Ailyn Yeboah PA PCP - General Physician Director [employer] 08/17/18
[2025-07-29 06:30] VITALS: BP 138/74; PULSE 99; TEMP 36.6; O2SAT 100; BMI 37.9
[2025-07-29] MEDS: LACTATED RINGERS 1,000 ML 30 ML IV CONT (06:30)
[2025-07-29] MEDS: ACETAMINOPHEN 500 MG TABLET 1000 MG PO (06:30)
--- NOTE | 2025-07-29 07:01 | WPDANESEPPF ---
Anes - Initial Pre Proc Eval Procedure: Operation Date: 07/29/25 07:30 Proposed Procedures p Hysteroscopy Dilation and Curettage - Swathi Hernández MD Date/Time: 07/29/25 07:01 Surgeon: Swathi Hernández MD Pre Op Diagnosis: endometrial hyperplasia Patient Data Age: 45 Gender: F Height: 1.57 m Weight: 90.9 kg Allergies Allergy/AdvReac Type Severity Reaction Status Date / Time codeine Allergy Intermediate Nausea and Verified 07/23/25 09:40 Vomiting Home Medications ?Medication ?Instructions ?Recorded ?Confirmed ?Type insulin aspart U-100 100 unit/mL 1.25 unit subcut Q1H 06/11/25 07/23/25 History subcutaneous solution (Novolog U-100 Insulin aspart) insulin pump cart,auto,BT,G6/7 #5 ea 06/11/25 07/23/25 History (Omnipod 5 G6-G7 Pods (Gen 5) subcutaneous cartridge) progesterone micronized 100 mg 200 mg (2 x 100 mg) PO QHS 60 days 06/11/25 07/23/25 Rx capsule #120 caps spironolactone 50 mg tablet 50 mg PO DAILY 06/11/25 07/23/25 History tirzepatide 15 mg/0.5 mL 15 mg subcut WEEKLY 06/11/25 07/23/25 History subcutaneous pen injector (Mounjaro) Laboratory Tests 07/29/25 06:41 POC Capillary Glucose 154 H mg/dl (65-105) Patient hx anesthesia problems: none Family hx anesthesia problems: none Results Review: All pre-operative results and documents have been reviewed as part of the pre-operative evaluation. [facility] Past Medical History Medical History GERD (gastroesophageal reflux disease) Gallbladder disorder Diabetes Allergies Surgical History Surgical History H/O wisdom tooth extraction History of cholecystectomy History of carpal tunnel surgery Delivery by section Family History Family History Grandparent Family history of lung cancer Family history of malignant neoplasm of breast Family history of heart disease in male family member before age 55 Father Brain tumor Other Family history of cardiovascular disease Social History Social History Smoking status: Never smoker Second hand tobacco smoke exposure: No Alcohol intake: current Drinks per week: 4 Substance use: never Substance use type: does not use Do You Feel Safe in your Home?: Yes Lack of Transportation: No Lack of Food: Never True Current Housing: I Have Housing Concerned About Future Housing: No Difficulty Paying Gas/Electric Bills: No Difficulty Paying for Meds: No Currently Unemployed: No Education: Bachelor's Degree Difficulty w/ Childcare or Family Care: No Living arrangements: with family Occupation/Education: other Spiritual care concerns: No Anes - Eval Final PreProcedure Day of Procedure 07/29/25 07:01 Patient weight: obese Heart: regular rate and rhythm Lungs: clear to auscultation Airway: Mallampati scale class II Neurological: alert and oriented Last oral intake: >/= 8 hours ASA classification: III Emergent: no Anesthetic plan: proceed Anesthesia type and monitoring: general GIVS and standard monitoring Results Review: All pre-operative results and documents have been reviewed as part of the pre-operative evaluation. Informed Consent: The patient's anesthetic plan and its attendant risks and benefits were discussed with the patient/family/POA. Questions were solicited and answers provided to the satisfaction of the patient/family/POA.
--- NOTE | 2025-07-29 07:01 | WPDHPUPDATE1 ---
History and Physical Update Update Date/Time: 07/29/25 07:01 History and Physical has been reviewed, including an updated exam of the patient. There are NO changes in the patient's condition. Risks, benefits, and alternatives have been discussed and questions answered. Patient agrees to proceed with Hysteroscopy with D&C.
--- NOTE | 2025-07-29 07:02 | WPDANESEPPF ---
Anes - Initial Pre Proc Eval Procedure: Operation Date: 07/29/25 07:30 Proposed Procedures p Hysteroscopy Dilation and Curettage - Swathi Hernández MD Date/Time: 07/29/25 07:02 Surgeon: Swathi Hernández MD Pre Op Diagnosis: endometrial hyperplasia Patient Data Age: 45 Gender: F Height: 1.57 m Weight: 90.9 kg Allergies Allergy/AdvReac Type Severity Reaction Status Date / Time codeine Allergy Intermediate Nausea and Verified 07/23/25 09:40 Vomiting Home Medications ?Medication ?Instructions ?Recorded ?Confirmed ?Type insulin aspart U-100 100 unit/mL 1.25 unit subcut Q1H 06/11/25 07/23/25 History subcutaneous solution (Novolog U-100 Insulin aspart) insulin pump cart,auto,BT,G6/7 #5 ea 06/11/25 07/23/25 History (Omnipod 5 G6-G7 Pods (Gen 5) subcutaneous cartridge) progesterone micronized 100 mg 200 mg (2 x 100 mg) PO QHS 60 days 06/11/25 07/23/25 Rx capsule #120 caps spironolactone 50 mg tablet 50 mg PO DAILY 06/11/25 07/23/25 History tirzepatide 15 mg/0.5 mL 15 mg subcut WEEKLY 06/11/25 07/23/25 History subcutaneous pen injector (Mounjaro) Laboratory Tests 07/29/25 06:41 POC Capillary Glucose 154 H mg/dl (65-105) Patient hx anesthesia problems: none Family hx anesthesia problems: none Results Review: All pre-operative results and documents have been reviewed as part of the pre-operative evaluation. [facility] Past Medical History Medical History GERD (gastroesophageal reflux disease) Gallbladder disorder Diabetes Allergies Surgical History Surgical History H/O wisdom tooth extraction History of cholecystectomy History of carpal tunnel surgery Delivery by section Family History Family History Grandparent Family history of lung cancer Family history of malignant neoplasm of breast Family history of heart disease in male family member before age 55 Father Brain tumor Other Family history of cardiovascular disease Social History Social History Smoking status: Never smoker Second hand tobacco smoke exposure: No Alcohol intake: current Drinks per week: 4 Substance use: never Substance use type: does not use Do You Feel Safe in your Home?: Yes Lack of Transportation: No Lack of Food: Never True Current Housing: I Have Housing Concerned About Future Housing: No Difficulty Paying Gas/Electric Bills: No Difficulty Paying for Meds: No Currently Unemployed: No Education: Bachelor's Degree Difficulty w/ Childcare or Family Care: No Living arrangements: with family Occupation/Education: other Spiritual care concerns: No Anes - Eval Final PreProcedure Day of Procedure 07/29/25 07:02 Patient weight: obese Heart: regular rate and rhythm Lungs: clear to auscultation Airway: Mallampati scale class II Neurological: alert and oriented Last oral intake: >/= 8 hours ASA classification: III Emergent: no Anesthetic plan: proceed Anesthesia type and monitoring: general GIVS and standard monitoring Results Review: All pre-operative results and documents have been reviewed as part of the pre-operative evaluation. Informed Consent: The patient's anesthetic plan and its attendant risks and benefits were discussed with the patient/family/POA. Questions were solicited and answers provided to the satisfaction of the patient/family/POA.
--- NOTE | 2025-07-29 07:35 | S_PTH ---
PATIENT: Ashanti Goetz LOC: [facility] DISTRICT#:[id number] AGE/SX: 45/F ROOM: RE07/29/[address]: Swathi Hernández MD : 1980 BED: DIS: 07/29/2025 SPEC #: [id number] RECD: 07/29/25 09:46 STATUS: LEWIS REQ #: [id number] RADHA: 07/29/25 07:[address]: Swathi Hernández DEPT: [facility] Surgical RECD BY: Glenis Ybarra ENTERED: 07/29/25 09:46 SP TYPE: Surgical OTHR DR: Ailyn Yeboah, PA-C Tissues: A - Endometrial Curettings Procedures: Hematoxylin and Eosin Stain Gross and Microscopic Level 4
[2025-07-29 07:51] VITALS: BP 130/83; PULSE 83; RESP 16; O2SAT 98
--- NOTE | 2025-07-29 07:51 | P.OP_ITS ---
Procedure Note - Detailed Date of Procedure 07/29/25 Pre-op Diagnosis AUB thickened endometrium Post-op Diagnosis Same Procedure Performed Hysteroscopy with D&C Surgeon Swathi Hernández MD Anesthesia MAC Findings Stenotic cervix, dilated without issue. Normal uterine cavity except for thickened endometrium. Bilateral tubal ostia visualized. Fluid deficit: 30cc Description of Procedure Ashanti was taken to the operating room where she was placed under sedation wit hout complications. She was then prepped and draped in the usual sterile fashion in the dorsal lithotomy position with her legs in low Usman stirrups. A time-out was performed and no perioperative antibiotics were indicated. A bivalve speculum was placed within the vagina where the cervix was easily identified. The anterior lip of the cervix was grasped with a single-tooth tenaculum. The cervix was then serially dilated to allow for the hysteroscope. The hysteroscope was advanced into the uterine cavity with the above findings noted. A curettage was then performed until a good uterine cry was felt throughout the uterus. Good hemostasis was noted. All instruments were removed from the vagina. Sponge, lap, instrument, and needle counts were correct at the end of the procedure. Patient was awoken from anesthesia and taken to recovery with plans of same-day discharge home. Estimated Blood Loss 5 IV Fluids 700 Pathology Yes (endometrial curettings) Complications No immediate complications Condition Stable Disposition Same day [facility] Billing Surgery - Charge Forward: Surgery Billing
[2025-07-29 08:20] VITALS: BP 126/82; PULSE 76; RESP 20
[2025-07-29] MEDS: oxyCODONE HCL (*CRX) 5 MG TAB IR PO (08:29)
[2025-07-29 08:50] VITALS: BP 133/82; PULSE 78; RESP 20
[2025-07-29 09:08] VITALS: BP 133/82; PULSE 75; RESP 20
== END 2025-07-29 09:09 | disposition home or self-care (01) ==
PROVIDERS: PCP Physician Assistant; Visit Provider Obstetrics & Gynecology
PROC: 0U5B8ZZ Destruction of Endometrium, Via Natural or Artificial Opening Endoscopic (ICD-10-PCS; CPT 58563; principal; 2025-07-29 07:30)
DX: N88.2 Stricture and stenosis of cervix uteri (principal); R93.89 Abnormal findings on diagnostic imaging of other specified body structures; K21.9 Gastro-esophageal reflux disease without esophagitis; E11.9 Type 2 diabetes mellitus without complications; K82.9 Disease of gallbladder, unspecified; E66.9 Obesity, unspecified; Z68.37 Body mass index [BMI] 37.0-37.9, adult; Z79.890 Hormone replacement therapy; Z79.85 Long-term (current) use of injectable non-insulin antidiabetic drugs; Z79.4 Long term (current) use of insulin; Z96.41 Presence of insulin pump (external) (internal); Z98.890 Other specified postprocedural states; Z90.49 Acquired absence of other specified parts of digestive tract; Z80.1 Family history of malignant neoplasm of trachea, bronchus and lung; Z80.3 Family history of malignant neoplasm of breast; Z82.49 Family history of ischemic heart disease and other diseases of the circulatory system
CPT/HCPCS: 58558; 82948; 88305; A9270; J2003; J2250; J2704; J3010; J7120

== ENCOUNTER 2025-09-17 16:47 | Outpatient (CLI) | payer BC, SELFPAY ==
--- OUTSIDE RECORDS SUMMARY | 2010-06-05 06:45 | XMS_ITS | Continuity of Care Document ---
Author Organization [facility] Address [address] [place] [address] Phone Care Team Providers Care Radio Television Technical Director Name Role Phone Barber OD, Zane Unavailable Unavailable Procedures Procedure Date Eye Exam & Treatment Refraction Eye Exam & Treatment Refraction CL Replacement - Vistakon Disp W/BW Soft Tax Medical No Charge Contact Lens Check CL Replacement - Vistakon Disp W/BW Soft Tax - Medical Eye Exam & Treatment Eye Exam & Treatment Refraction Advance Directives Directive Yes / No Effective Date File Name No Information Encounters Encounter Description Practice Location Reason(s) For Visit Diagnoses Date Provider Providers Copied on Encounter [facility], [address] [place] [address] [address], [place], [place], [id number], [place] tel:[phone] [facility] No Information 3-201 0 Barber OD Zane. [address] , [address], [place], [address], [place]. tel:[phone] Referring Provider: Brent Salazar, [address] [facility] [address], [place], [address]. tel:[phone] [facility], [address], [place], [place], [id number], tel:[phone] [facility] No Information 7-200 9 Barber OD Zane. [address] , [address], [place], [address], [place]. tel:[phone] Referring Provider: Bernabe Green, [address] [facility] [address], [place], [address]. tel:[phone] [facility], [address], [place], [place], [address], tel:[phone] [facility] No Information Mar-2 0-200 8 Barber OD Zane. [address] , [address], [place], [address], [place]. tel:[phone] [facility], [address], [place], [place], [address], [place] tel:[phone] [facility] No Information Mar-0 6-200 8 Barber OD Zane. [address] , [address], [place], [place], [facility], [place]. tel:[phone] Referring Provider: Bernabe Green, [address], [place], [address]. tel:[phone] [facility], [address] [facility] [address], [place], [place], [address], [place] tel:[phone] [facility] No Information Feb-2 7-200 7 Barber OD Zane. [address] , [address], [place], [address], [place]. tel:[phone] Referring Provider: Brent Salazar, [address] [facility] [address], [place], [address]. tel:[phone] Family History Family Member Type Diagnosis Age At Onset No Information Payers Payer name Insurance type Covered green party ID Authorarelya yolis(s) [facility] CI [id number] Social History Type Description Quantity Date Captured Comments Sex Female Smoking Status No Information Chief Complaint And Reason For Visit No Information Reason For Referral Reason For Referral No Information History Of Present Illness Encounter Date Complaint History Of Prese nt Illness No Information Functional Status Date Functional Assessmen t No Information Instructions Date Instruction Additional Infor mation No Information Assessments Type Assessment Date No Information Patient Care Teams Name Effective Dates (start - stop) Status Members No Information
--- OUTSIDE RECORDS SUMMARY | 2025-09-17 17:01 | XMS_ITS | Clinical Summary ---
Author Organization [facility] Address [address] [place] [address] Care Team Providers Care Enamel Shader Name Role Phone Ailyn Yeboah Primary Care Pr ovider Allergies Active Allergy Reactions Criticality Noted Date Comments Codeine Nausea only,Vomiting Reaction: NAUSEA, VOMITING, Medications clotrimazole-betam ethasone (LOTRISONE) lotion Apply topically 2 (two) times a day. Active montelukast (SINGULAIR) 10 mg tablet Take 1 tablet (10 mg total) by mouth nightly Active blood-glucose meter,continuous (DEXCOM G6 LOG HAULER) mis One Linux Solaris Administrator 1 each 09/19/20 18 Active blood-glucose transmitter [...] injectionIndicatio ns:Type 1 diabetes mellitus without complication USE DIRECTED WITH INSULIN PUMP. UP TO [...] review Assessment & Plan (10/04/2024 6:19 PM TARIFF INSPECTOR): A1c is at goal. I recommended that [...] Continue routine eye exams. She sees a serger and reports no neuropathy. I refilled her basal insulin pen to take every 24 hours in case of pump failure. I also refilled her glucagon. I will have her try Flonase for the contact dermatitis presumably from the Omnipod adhesive. We will discuss starting a statin at the next visit for ASCVD prevention. Assessment & Plan (01/17/2019 5:29 PM TARIFF INSPECTOR): Diabetes control is improving with less variability [...] 01/29/2025 Assessment & Plan (10/04/2024 1:45 PM TARIFF INSPECTOR): Unclear etiology. Could be urticaria or contact dermatitis. She will see an urticaria specialist and ironmolder. Obesity (BMI 30-39.9) 06/05/20242024 Assessment & Plan (10/04/2024 6:19 PM TARIFF INSPECTOR): Continue Mounjaro. This is unlikely to be [...] Insulin-requiring or dependent type II diabetes me Immunizations Immunization Administration Dates Next Due Influenza, [...] Vitamin D deficiency Diabetes mellitus type I 07/15/2000 Family History Medical History Relation Name [...] on file Legal Sex Female 6:45 AM TARIFF INSPECTOR Gender Identity Female 02/25/2020 2:52 PM CDT Sexual Orientation Straight 02/25/2020 2: 52 PM CDT Last Filed Vital Signs Vital Sign Reading Time Taken Comments Blood Pressure 143/88 01/29/2025 12:47 PM CDT Pulse 97 01/29/2025 12:47 PM CDT Temperature 36.6 C (97.9 F) 12/17/2024 9:00 AM TARIFF INSPECTOR Respiratory Rate 18 12/17/2024 9:00 AM TARIFF INSPECTOR Oxygen Saturation 100% 12/17/2024 9:00 AM TARIFF INSPECTOR Inhaled Oxygen Concentration - - Weight 89.8 [...] POCT LIPID PANEL Routine 10/04/2024 2:29 PM TARIFF INSPECTOR Type 1 diabetes mellitus without complication (HCC) ALBUMIN CREATININE RATIO, URINE Routine 06/05/2024 3:10 PM CDT Type 1 diabetes mellitus without complication (HCC) BASIC METABOLIC PANEL Routine 01/04/2023 12:30 PM TARIFF INSPECTOR Type 1 diabetes mellitus with hyperglycemia (HCC) THYROID FUNCTION CASCADE Routine 01/04/2023 12:30 PM TARIFF INSPECTOR Type 1 diabetes mellitus with hyperglycemia (HCC) [...] * POCT lipid panel (10/04/2024 2:29 PM TARIFF INSPECTOR) Cholesterol, POC 171 mg/dL HDL, POC 75 mg/dL Triglycerides, POC 146 mg/dL LDL Cholesterol POC 67 mg/dL Chol/HDL Ratio, POC 2.3 Non-HDL Cholesterol, POC 67 mg/dL Cholesterol Total, POC 171 mg/dL Capillary blood 10/04/2024 2 :29 PM TARIFF INSPECTOR Yonatan Ramírez MD POINT OF CARE TEST ORDE RABLES Final Result * Albumin Creatinine Ratio, Urine [...] - 06/06/2024 7:11 AM CDT Performed at: [address] [place] [id number] Masonry Installer: Dipesh Todd PhD, Phone: [phone] us Yonatan Ramírez MD LAB URINE ORDERABLES Fi nal Result Performing Organization Address [facility] [place] [facility] [place] de Phone Number [facility] * TSH reflex to free T4 (01/04/2023 12:30 PM TARIFF INSPECTOR) TSH 1.320 0.450 - 4.500 uIU/mL [facility] - 01 Comment: No apparent thyroid disorder. Additional testing not indicated. In rare instances, Secondary Hypothyroidism as well as Subclinical Hypothyroidism have been reported in some patients with normal TSH values. Blood 01/04/2023 12:3 0 PM TARIFF INSPECTOR 01/04/2023 Narrative [facility] - 01/05/2023 9:11 AM TARIFF INSPECTOR Performed at: [address] [id number] Masonry Installer: Dipesh Todd PhD, Phone: [phone] us Gabriel Escalante MD LAB BLOOD ORDERABLES Final R esult Performing Organization Address [facility] [place] [facility] [place] de Phone Number [facility] * (ABNORMAL) Basic metabolic panel (01/04/2023 12:30 PM TARIFF INSPECTOR) Glucose 61(L) 70 - 99 mg/dL [facility] [...] - 01 Blood 01/04/2023 12:3 0 PM TARIFF INSPECTOR 01/04/2023 Narrative [facility] - 01/05/2023 7:10 AM TARIFF INSPECTOR Performed at: 01 - [facility] [address] [id number] Masonry Installer: Dipesh Todd PhD, Phone: [phone] us Gabriel Escalante MD LAB BLOOD ORDERABLES Final R esult [facility] - 01 from Last 3 Months or Most Recently Relevant to Health Maintenance [place] Care Teams Enamel Shader Relationship Specialty Start Date End Date Ailyn Yeboah PA PCP - General Physician Cardiologist 08/17/18
--- OUTSIDE RECORDS SUMMARY | 2025-09-17 17:01 | XMS_ITS | Encounter Summary ---
Author Organization [facility] Address [address] [place], [place] [address] [address] Care Team Providers Care Finisher Plate Name Role Phone Unavailable Primary Care Provider Unavailabl e Encounter Details Date Type Department Care Team (Late st Contact Info) Description 09/06/2024 Lab Requisition [facility] - DermPath Lab [address] [facility] [address] [facility] [place] [address] Nichole Li MD [address] [facility] [address] [place] [address] Social History Tobacco Use Types Packs/Day Years Used Date Smoking Tobacco: Never Assessed Comments Unknown Sex and Gender Information Value Date Recorded Sex Assigned at Not on file Legal Sex Female 5:40 AM FRONT END ASSISTANT Gender Identity Not on file Sexual Orientation Not on file documented as of this encounter Plan of Treatment Not on file documented as of this encounter Procedures Procedure Name Priority Date/Time Associated Diagnosis Comments DERMATOPATHOLOGY Routine 09/06/2024 1:46 PM CDT documented in this encounter Results * DERMATOPATHOLOGY (09/06/2024 1:46 PM CDT) Case Report Dermatopathology Report Case: [id number] Authorizing Provider: Nichole Li MD Collected: 09/06/2024 01:46 PM Ordering Location: [facility] - Received: 09/07/2024 02:17 PM DermPath Lab [...] measuring 4x4x6 mm. Jar 0. 4:05 PM T DERMATOPATHOLOGY LABORATORY Microscopic Description Specimen A. SKIN, [...] as to drug or contact. 4:05 PM T DERMATOPATHOLOGY LABORATORY Disclaimer An external and internal positive and negative controls are appropriate for the histochemical, immunohistochemical and immunofluorescence stain(s) in this case (if any), except where stated explicitly. The performance characteristics of the stain(s) cited in this report were developed and its performance characteristic determined by the Dermatopathology Laboratory at [facility], directed by Dr. Cain Prieto. These tests need not be, and therefore are not, approved by the [place] Food and Drug Administration. The tests are used for clinical purposes. Billing Codes Specimen Charges Stain Charges 92268 1 10076 1 4:05 PM CDT DERMATOPATHOLOGY LABORATORY Embedded Images 4:05 PM CDT DERMATOPATHOLOGY LABORATORY Pathology/Cytolo gy TISSUE SPECIMEN FROM SKIN / Unknown 09/06/2024 1:46 PM CDT 09/07/2024 2:17 PM CDT us Nichole Li MD LAB - PATHOLOGY/CYTOLOGY OR DERABLES Final Result DERMATOPATHOLOGY LABORATORY [facility] - Department of Dermatology [address] [phone] documented in this encounter Visit Diagnoses Not on filedocumented in this encounter
--- OUTSIDE RECORDS SUMMARY | 2025-09-17 17:01 | XMS_ITS | Clinical Summary ---
Author Organization [facility] Address [address] [place] [address] Phone Care Team Providers Care Scientific Technical Writer Name Role Phone Ailyn Yeboah Primary Care Provider [phone] Allergies Active Allergy Reactions Criticality Noted Date [...] Encounters Date Type Department Care Team Description 09/11/2025 External Device Data [facility] ABSTRACTION Provider, Abstract 09/11/2025 External Device Data [facility] ABSTRACTION Provider, Abstract 09/03/2025 External Device Data [facility] ABSTRACTION Provider, Abstract 06/18/2025 External Device Data [facility] ABSTRACTION Provider, [...] on file Legal Sex Female 5:11 PM COMPLAINT OPERATOR Gender Identity Not on file Sexual Orientation Not on file Last Filed Vital Signs Vital Sign Reading Time Taken Comments Blood Pressure 111/66 02/27/2024 10:13 AM CDT Pulse 88 02/27/2024 10:13 AM CDT Temperature 36.8 C (98.3 F) 01/05/2023 10:26 AM COMPLAINT OPERATOR Respiratory Rate 16 01/05/2023 10:47 AM COMPLAINT OPERATOR Oxygen Saturation 97% 01/05/2023 10:47 AM COMPLAINT OPERATOR Inhaled Oxygen Concentration - - Weight 108.9 [...] Comments COLONOSCOPY REPORT 01/05/2023 10 :31 AM COMPLAINT OPERATOR from Last 3 Months or Most Recently Relevant to Health Maintenance Results * COLONOSCOPY REPORT (01/05/2023 10:31 AM COMPLAINT OPERATOR) Narrative Procedure Note Golden Cabrera MD - 01/05/2023 10:30 AM CST [facility] Endoscopy Patient Name: Ashanti Goetz Procedure Date: 01/05/2023 Date of : 1980 Attending MD: Golden Cabrera MD, Procedure: Colonoscopy Indications: Family history of brain cancer father at a young age. Colorrheic diarrhea. Providers: Golden Cabrera MD Referring MD: Ailyn Yeboah Medicines: Propofol per Anesthesia Complications: No [...] of Addenda: [address]; [place] [address] Golden Cabrera MD GI PROCEDURE ORDERABLES Final Re sult from Last 3 Months or Most Recently Relevant to Health Maintenance Insurance [facility] BLUE ACCESS/TRUE BLUE PPO Advance Directives For more information, please contact: [phone] * Full Code (Latest Code Status on File) Date Activated Date Inactivated Comments 01/05/2023 9:02 AM 01/05/2023 1:12 PM Care Teams Scientific Technical Writer Relationship Specialty Start Date End Date Ailyn Yeboah PA PCP - General Physician Securities Analyst 11/29/16
--- OUTSIDE RECORDS SUMMARY | 2025-09-17 17:02 | XMS_ITS | Clinical Summary ---
Author Organization [facility] Address [address] [facility] [place] [address] Care Team Providers Care Pattern Molder Name Role Phone Unavailable Primary Care Provider Unavailabl e Source Comments [facility],non-owned Affiliates and Associated Physician Practices is amultiple site organization consisting of ambulatory clinics and hospital sitesin [place], [place], [place] and [place]. This disclosure is being madepursuant to the Care Everywhere program and may not contain all information available regarding this patient. Last updated 18.[facility] [employer] Social History Tobacco Use Types Packs/Day Years Used Date Smoking Tobacco: Never Assessed Comments Unknown Sex and Gender Information Value Date Recorded Sex Assigned at Not on file Legal Sex Female 5:40 AM NEW HOME SALES CONSULTANT Gender Identity Not on file Sexual Orientation [...] series) 2009 DEPRESSION SCREENING 11/14/2024 COVID-19 VACCINE ( - 2023-2 5 season) 2025 INFLUENZA VACCINE [...] patient's age to complete this topic Insurance [facility] SELF PAY NO INSURANCE Member Subscriber Plan / Payer (Ef fective for All Dates) Name:Ashanti Pederson Member ID:Not on file Relation to Subscriber:Not on file Name:ASHANTI PEDERSON Subscriber ID:Not on file (Home) Address: [address] [place] [address] Payer ID:Not on file Group ID:Not on file Type:Self Pay Address: [place], [place]
[2025-09-17 17:38] LABS: Beta HCG Quantitative < 2.39 mIU/ML
== END 2025-09-17 16:48 | disposition home or self-care (01) ==
LOC: ANHLAB 16:48
PROVIDERS: PCP Physician Assistant; Visit Provider Obstetrics & Gynecology
DX: N92.6 Irregular menstruation, unspecified (principal)
CPT/HCPCS: 36415; 84702